=== PATIENT | male | born 1995 | race Hispanic/Latino ===

== ENCOUNTER 2018-10-07 21:16 | Emergency (ER) | payer SELFPAY ==
[~2018-10-07] VITALS: Ht 180.3 cm; Wt 93.0 kg
[2018-10-07] MEDS ORDERED: BACTRIM DS TAB1 EACH PO (21:58)
== END 2018-10-07 22:05 | disposition home or self-care (01) ==
LOC: FSED 21:16
DX: L03.113 Cellulitis of right upper limb (principal); T78.49XA Other allergy, initial encounter; S50.861A Insect bite (nonvenomous) of right forearm, initial encounter
CPT/HCPCS: 99283

== ENCOUNTER 2022-08-12 19:46 | Emergency (ER) | payer OTHER ==
[~2022-08-12] VITALS: Ht 180.3 cm; Wt 99.8 kg
[~2022-08-12 19:46] MED LIST: BACTRIM DS TAB1 EACH PO
[2022-08-12] MEDS ORDERED: KETOROLAC TROMETHAMINE 60 MG/2 ML VIAL IM ONE (20:15)
[2022-08-12] MEDS ORDERED: KETOROLAC TROMETHAMINE 60 MG/2 ML VIAL ONE (20:31)
[2022-08-12] MEDS ORDERED: TRAMADOL HCL 50 MG TAB PO STA (20:52)
[2022-08-12 21:38] VITALS: BP 135/72
[2022-08-12] MEDS ORDERED: ULTRAM 50MG50 MG PO (21:41)
== END 2022-08-12 21:48 | disposition home or self-care (01) ==
LOC: FSED 19:51
DX: R10.31 Right lower quadrant pain (principal); K76.0 Fatty (change of) liver, not elsewhere classified; F17.210 Nicotine dependence, cigarettes, uncomplicated
CPT/HCPCS: 74176; 81003; 96372; 99283; J1885